=== PATIENT | male | born 1985 | race Caucasian/White ===

== ENCOUNTER 2016-06-11 09:39 | Outpatient (CLI) ==
[2015-11-18 18:48] VITALS: BMI 25.9
== END 2016-06-11 09:40 ==
LOC: AMBL 09:39
PROVIDERS: ATTEND Internal Medicine
DX: R56.9 Unspecified convulsions (principal); R51 Headache; M54.5 Low back pain; S09.90XA Unspecified injury of head, initial encounter; W19.XXXA Unspecified fall, initial encounter

== ENCOUNTER 2016-10-22 17:07 | Outpatient (CLI) ==
[2015-11-18 18:48] VITALS: BMI 25.9
[2016-10-22 17:59] LABS: BASOPHILS % (AUTO) 0.3 % (0.0-3.0); EOSINOPHILS % (AUTO) 0.6 % (0.0-7.0); HEMATOCRIT 42.1 % (42.0-52.0); HEMOGLOBIN 14.5 g/dl (14.0-18.0); IMMATURE GRANULOCYTE % (AUTO) 0.2 % (0.0-5.0); LYMPHOCYTES # (AUTO) 2.6 K/uL (0.60-3.4); LYMPHOCYTES % (AUTO) 39.9 (10.0-50.0); MEAN CORPUSCULAR HEMOGLOBIN 31.1 pg (27.0-31.0); MEAN CORPUSCULAR HGB CONC 34.4 (31.8-35.4); MEAN CORPUSCULAR VOLUME 90.3 fl (80.0-94.0); MONOCYTES # (AUTO) 0.4 K/uL (0.4-2.0); MONOCYTES % (AUTO) 6.4 (0-10); NEUTROPHILS # (AUTO) 3.4 K/ul (2.0-6.9); NEUTROPHILS % (AUTO) 52.6; PLATELET COUNT 257 10^3/uL (140-440); RED BLOOD COUNT 4.66 10^6/ul (4.70-6.10); WHITE BLOOD COUNT 6.42 K/ul (4.2-10.2)
[2016-10-22 18:12] LABS: ALBUMIN 4.5 g/dL (3.4-5.0); ALBUMIN/GLOBULIN RATIO 1.55; ANION GAP 15.9; BILIRUBIN,TOTAL 0.66 mg/dL (0.00-1.20); BUN/CREATININE RATIO 15.73; CALCIUM 9.6 mg/dL (8.2-10.2); CREATININE 0.89 mg/dL (0.60-1.10); POTASSIUM 3.9 mmol/L (3.5-5.1); TOTAL PROTEIN 7.4 g/dL (6.4-8.2)
== END 2016-10-22 17:08 | disposition home or self-care (01) ==
LOC: LAB 17:07
PROVIDERS: ATTEND Nurse Practitioner Family
DX: R19.7 Diarrhea, unspecified (principal)
CPT/HCPCS: 36415; 80053; 82150; 83690; 85025

== ENCOUNTER 2016-10-29 08:52 | Outpatient (CLI) ==
[2015-11-18 18:48] VITALS: BMI 25.9
--- NOTE | 2016-10-29 09:37 | CT ---
EXAM: CT of the abdomen pelvis without contrast History: Diarrhea. Technique: Multiplanar CT images through the abdomen pelvis were obtained without the administratio n of IV contrast Findings: Lung bases are clear. No acute osseous abnormalities. No renal stones and no hydronephrosis. The appendix is normal. No discrete gallstones identified b y CT. No focal liver or splenic lesions. No peripancreatic inflammation. Adrenal glands are unrem arkable. No bowel obstruction. No free air. No ascites. 2 mm calcification seen within the bladd er. No perirectal inflammation. Prostate is not enlarged. Fluid seen in the stomach. Nondilated fluid filled loops of small bowel. Mild to moderate colonic stool. Impression: 1. No acute intra-abdominal or pelvic process. 2. 2 mm bladder calculus.
== END 2016-10-29 08:53 | disposition home or self-care (01) ==
LOC: RAD 08:52
PROVIDERS: ATTEND Nurse Practitioner Family
DX: R19.7 Diarrhea, unspecified (principal)

== ENCOUNTER 2017-01-28 13:08 | Outpatient (CLI) ==
[2015-11-18 18:48] VITALS: BMI 25.9
[2017-01-28 13:20] LABS: BASOPHILS % (AUTO) 0.3 % (0.0-3.0); EOSINOPHILS # (AUTO) 0.1 K/ul (0.0-0.7); EOSINOPHILS % (AUTO) 1.4 % (0.0-7.0); HEMATOCRIT 45.3 % (42.0-52.0); HEMOGLOBIN 15.5 g/dl (14.0-18.0); IMMATURE GRANULOCYTE % (AUTO) 0.8 % (0.0-5.0); LYMPHOCYTES # (AUTO) 2.5 K/uL (0.60-3.4); LYMPHOCYTES % (AUTO) 25.5 (10.0-50.0); MEAN CORPUSCULAR HEMOGLOBIN 30.8 pg (27.0-31.0); MEAN CORPUSCULAR HGB CONC 34.2 (31.8-35.4); MEAN CORPUSCULAR VOLUME 89.9 fl (80.0-94.0); MONOCYTES # (AUTO) 0.6 K/uL (0.4-2.0); MONOCYTES % (AUTO) 6.5 (0-10); NEUTROPHILS # (AUTO) 6.3 K/ul (2.0-6.9); NEUTROPHILS % (AUTO) 65.5; PLATELET COUNT 259 10^3/uL (140-440); RED BLOOD COUNT 5.04 10^6/ul (4.70-6.10); WHITE BLOOD COUNT 9.68 K/ul (4.2-10.2)
[2017-01-28 13:32] LABS: ALBUMIN 4.3 g/dL (3.4-5.0); ALBUMIN/GLOBULIN RATIO 1.26; ANION GAP 13.3; BILIRUBIN,TOTAL 0.61 mg/dL (0.00-1.20); BUN/CREATININE RATIO 12.5; CALCIUM 10.1 mg/dL (8.2-10.2); CREATININE 0.8 mg/dL (0.60-1.10); POTASSIUM 4.3 mmol/L (3.5-5.1); TOTAL PROTEIN 7.7 g/dL (6.4-8.2)
== END 2017-01-28 13:09 | disposition home or self-care (01) ==
LOC: LAB 13:08
PROVIDERS: ATTEND Nurse Practitioner Family
DX: R19.7 Diarrhea, unspecified (principal)
CPT/HCPCS: 36415; 80053; 82150; 83690; 85025

== ENCOUNTER 2017-07-01 17:09 | Emergency (ER) ==
[2017-07-01 17:11] VITALS: BP 136/63; TEMP 98.2; BMI 34.0
--- NOTE | 2017-07-01 19:07 | ED.PDOC ---
General ED Provider: Dr. CRAIG GOVEA Chief Complaint: Tooth Problem Stated Complaint: Tootache. Onset for several days with progressive worsening.States has had problems with his teeth for several years and denies drug usage. Scheduled to see dentist since he now has insurance. Pain in lt lateral maxillofacial region Time Seen by Physician: 19:05 Mode of Arrival: Walk-In Information Source: Patient Exam Limitations: No limitations Primary Care Provider: TOÑA MEEK Nursing and Triage Documentation Reviewed and Agree: Yes Reviewed sepsis parameters & appropriate labs ordered?: Yes System Inflammatory Response Syndrome: Not Applicable Sepsis Protocol: For patient's 13 years and over: Temp is 96.8 and below OR 101 and greater Pulse >90 BPM Resp >20/minute Acutely Altered Mental Status Are patient's symptoms suggestive of a new infection, such as: -Pneumonia -Skin, Soft Tissue -Endocarditis -UTI -Bone, Joint Infection -Implantable Device -Acute Abdominal Infection -Wound Infection -Meningitis -Blood Stream Catheter Infection -Unknown System Inflammatory Response Syndrome: Not Applicable EENT Complaint Exam - Dental/Oral Complaint/Exam Mechanism of Injury: Unknown Symptoms Are: Still present Timing: Constant Initial Severity: Severe Current Severity: Moderate Character: Reports: Aching, Throbbing Aggravating: Reports: Cold, Chewing Alleviating: Reports: None Associated Signs and Symptoms: Reports: Swelling, Foul odor, Foul taste in mouth Related History: Reports: Similar episode Cardiac Risk Factors: Reports: None Dental/Oral Surgical History: Reports: None (severe global dental carries) Tooth Findings: Present: Percussion tenderness, Gross decay, Gross caries, Abcess, Cellulitis Cervical Lymphadenopathy Present: Yes Facial Swelling Present: Yes Bleeding Present: No Oropharynx Findings: Absent: Clots, Active bleeding Septal Hematoma: No Foreign Body Present: No Dysphagia Present: No Drooling Present: No Asymmetrical Tonsillar Swelling Present: No Differential Diagnoses: Dental Abcess, Dental Caries, Gingivitis, Odontogenic Pain Review of Systems - Review Of Systems Constitutional: Reports: No symptoms Eyes: Reports: No symptoms Ears, Nose, Mouth, Throat: Reports: No symptoms, Mouth pain, Mouth swelling Respiratory: Reports: No symptoms Cardiac: Reports: No symptoms GI: Reports: No symptoms : Reports: No symptoms Musculoskeletal: Reports: No symptoms Skin: Reports: No symptoms Neurological: Reports: No symptoms Endocrine: Reports: No symptoms Hematologic/Lymphatic: Reports: No symptoms All Other Systems: Reviewed and Negative Past Medical History - Past Medical History Endocrine: Reports: None Cardiovascular: Reports: None Respiratory: Reports: None Hematological: Reports: None Gastrointestinal: Reports: None Genitourinary: Reports: None Neuro/Psych: Reports: None Musculoskeletal: Reports: None Cancer: Reports: None - Surgical History General Surgical History: Reports: None - Family History Family History: Reports: None - Social History Smoking Status: Current every day smoker, Heavy tobacco smoker Hx Substance Use: No Alcohol Screening: None Physical Exam - Physical Exam Appearance: Well-appearing, No pain distress, Well-nourished Ill-appearing: Mild Pain Distress: Moderate Eyes: CLEO, EOMI, Conjunctiva clear ENT: Ears normal, Nose normal, Oropharynx normal, Erythema (severe multiple dental carries, gross decay with facial tenderness lt maxillofacial region) Respiratory: Airway patent, Breath sounds clear, Breath sounds equal, Respirations nonlabored Cardiovascular: RRR, Pulses normal, No rub, No murmur GI/: Soft, Nontender, No masses, Bowel sounds normal, No Organomegaly Musculoskeletal: Normal strength, ROM intact, No edema, No calf tenderness Skin: Warm, Dry, Normal color Neurological: Sensation intact, Motor intact, Reflexes intact, Cranial nerves intact, Alert, Oriented Psychiatric: Affect appropriate, Mood appropriate Critical Care Note - Critical Care Note Total Time (mins): 0 Course - Course Vital Signs: Temp Pulse Resp BP Pulse Ox 07/01/17 17:09 98.2 F 83 20 136/63 96 Departure - Departure Time of Disposition: 19:25 Disposition: HOME SELF-CARE Discharge Problem: Abscess, dental Instructions: Dental Abscess (ED) Condition: Fair Pt referred to PMD for follow-up: Yes (DENTIST /PCP) IPMP verified?: No Additional Instructions: Treatment offered. 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
[2017-07-01] MEDS ORDERED: UNASYN 1.5 GM in SODIUM CHLORIDE 100 ML IV STA (19:15)
[2017-07-01] MEDS ORDERED: TORADOL IVP STA (19:15)
== END 2017-07-01 19:24 | disposition home or self-care (01) ==
LOC: ED 17:09
DX: K04.7 Periapical abscess without sinus (principal); K02.7 Dental root caries; F17.210 Nicotine dependence, cigarettes, uncomplicated
CPT/HCPCS: 99284

== ENCOUNTER 2017-11-07 16:53 | Outpatient (CLI) | END 2017-11-07 16:54 | disposition home or self-care (01) | LOC: LAB 16:53 | PROVIDERS: ATTEND Nurse Practitioner Family | DX: G40.909 Epilepsy, unspecified, not intractable, without status epilepticus (principal); Z51.81 Encounter for therapeutic drug level monitoring | CPT/HCPCS: 36415; 80053; 80061; 82542 ==

== ENCOUNTER 2018-06-19 18:27 | Emergency (ER) | payer OTHER ==
[2018-06-19 18:29] VITALS: BP 129/76; TEMP 97.5; BMI 28.0
--- NOTE | 2018-06-19 19:52 | CT ---
EXAM: CT scan abdomen pelvis without contrast HISTORY: Abdominal pain COMPARISON: CT scan pelvis 10/29/2016 FINDINGS: . It was axial images obtained from the lung bases to the symphysis pubis without contras t utilizing 5-mm collimation. Sagittal and coronal reconstructions were imaged and reviewed.. The v isualized lung bases are clear. Gallbladder is fluid filled without cholelithiasis. The liver, panc reas, spleen and adrenal glands have normal unenhanced CT appearance of the kidneys morphologically n ormal. The abdominal aorta is normal course caliber. There is a small fat-containing umbilical wilber ia. There is a normal appendix. Scattered subcentimeter mesenteric lymph nodes noted which may rela татьяна to mesenteric adenitis the prostate gland normal in size. The bladder is small volumed limiting evaluation.. Likely stable 2 mm bladder calculus. There is no free fluid or inflammatory changes.. Bone windows reveals no evidence of lytic or blastic lesions. IMPRESSION: No acute intra-abdominal findings
--- NOTE | 2018-06-19 19:57 | ED.PDOC ---
General ED Provider: Dr. CRAIG OSPINA-ER Chief Complaint: Abdominal Pain Stated Complaint: becka had vomiting and diarrhea and cramps for 24hrs---keep fluids down now Time Seen by Physician: 18:30 Mode of Arrival: Walk-In Information Source: Patient Exam Limitations: No limitations Nursing and Triage Documentation Reviewed and Agree: Yes Does patient meet sepsis criteria?: No System Inflammatory Response Syndrome: Not Applicable Sepsis Protocol: For patient's 13 years and over: Temp is 96.8 and below OR 101 and greater Pulse >90 BPM Resp >20/minute Acutely Altered Mental Status Are patient's symptoms suggestive of a new infection, such as: -Pneumonia -Skin, Soft Tissue -Endocarditis -UTI -Bone, Joint Infection -Implantable Device -Acute Abdominal Infection -Wound Infection -Meningitis -Blood Stream Catheter Infection -Unknown GI Complaint Exam - Abdominal Pain Complaint/Exam Onset: Gradual Duration: 2 days Symptoms Are: Still present Timing: Intermittent Initial Severity: Mild Current Severity: Mild Location of Pain: Diffuse Radiates To: Reports: Back Character: Reports: Dull, Aching, Cramping Alleviating: Reports: Spontaneous resolution Associated Signs and Symptoms: Reports: Nausea, Diarrhea Abdominal Findings: Present: None Differential Diagnoses: Gastroenteritis Quality Indicator For Non-Traumatic Chest Pain/Syncope: EKG Performed Review of Systems - Review Of Systems Constitutional: Reports: No symptoms Eyes: Reports: No symptoms Ears, Nose, Mouth, Throat: Reports: No symptoms Respiratory: Reports: No symptoms Cardiac: Reports: No symptoms GI: Reports: Abdominal pain, Diarrhea, Nausea : Reports: No symptoms Musculoskeletal: Reports: No symptoms Skin: Reports: No symptoms Neurological: Reports: No symptoms Endocrine: Reports: No symptoms Hematologic/Lymphatic: Reports: No symptoms All Other Systems: Reviewed and Negative Past Medical History - Past Medical History Previously Healthy: No Endocrine: Reports: None Cardiovascular: Reports: None Respiratory: Reports: None Hematological: Reports: None Gastrointestinal: Reports: None Genitourinary: Reports: None Neuro/Psych: Reports: None Musculoskeletal: Reports: None Cancer: Reports: None - Surgical History General Surgical History: Reports: None - Family History Family History: Reports: None - Social History Smoking Status: Current every day smoker, Heavy tobacco smoker Hx Substance Use: No Alcohol Screening: None Physical Exam - Physical Exam Appearance: Well-appearing Eyes: CLEO, EOMI, Conjunctiva clear ENT: Ears normal, Nose normal, Oropharynx normal Neck: Supple Respiratory: Airway patent, Breath sounds clear, Breath sounds equal, Respirations nonlabored Cardiovascular: RRR, Pulses normal, No rub, No murmur GI/: Soft, Nontender, No masses, Bowel sounds normal, No Organomegaly Musculoskeletal: Normal strength, ROM intact, No edema, No calf tenderness Skin: Warm, Dry, Normal color Neurological: Sensation intact, Motor intact, Reflexes intact, Cranial nerves intact, Alert, Oriented Psychiatric: Affect appropriate, Mood appropriate Interpretation - Radiology Interpretation Radiology Interpretation By: Radiologist Exam Interpreted: CT Scan - EKG Interpretation Time of EKG #1: 19:57 Rate: Normal Rhythm: Sinus Ectopy: None [place]: NL ST Segment: Normal Interpretation: nsr Critical Care Note - Critical Care Note Total Time (mins): 0 Course - Course Hematology/Chemistry: 06/19/18 19:03 06/19/18 19:03 Orders, Labs, Meds: Lab Review 06/19/18 06/19/18 06/19/18 19:03 19:03 19:03 WBC 7.47 RBC 4.88 Hgb 14.9 Hct 43.1 MCV 88.3 MCH 30.5 MCHC 34.6 RDW Coeff of Ruth 12.4 Plt Count 204 Immature Gran % (Auto) 0.3 Neut % (Auto) 73.8 Lymph % (Auto) 18.9 [place] % (Auto) 6.6 Eos % (Auto) 0.1 Baso % (Auto) 0.3 Immature Gran # (Auto) 0.0 Neut # (Auto) 5.5 Lymph # (Auto) 1.4 [place] # (Auto) 0.5 Eos # (Auto) 0.0 Baso # (Auto) 0.0 ESR 7 Sodium 137.2 Potassium 3.77 Chloride 101.1 Carbon Dioxide 24.8 Anion Gap 15.07 BUN 19.1 Creatinine 0.86 Estimated GFR (MDRD) 103.00 BUN/Creatinine Ratio 22.20 Glucose 107.7 H Calcium 9.26 Total Bilirubin 0.58 AST 23.3 ALT 20.0 Alkaline Phosphatase 59.3 Total Protein 7.06 Albumin 4.46 Globulin 2.60 Albumin/Globulin Ratio 1.71 Amylase 45.4 Lipase 56.9 Urine Color Urine Clarity Urine pH Ur Specific [place] Urine Protein Urine Glucose (UA) Urine Ketones Urine Blood Urine Nitrite Urine Bilirubin Urine Urobilinogen Ur Leukocyte Esterase Urine Microscopic RBC Urine Microscopic WBC Ur Squamous Epith Cells Urine Mucus Influ A Molecular Assay Influ B Molecular Assay 06/19/18 06/19/18 19:11 19:36 WBC RBC Hgb Hct MCV MCH MCHC RDW Coeff of Ruth Plt Count Immature Gran % (Auto) Neut % (Auto) Lymph % (Auto) [place] % (Auto) Eos % (Auto) Baso % (Auto) Immature Gran # (Auto) Neut # (Auto) Lymph # (Auto) [place] # (Auto) Eos # (Auto) Baso # (Auto) ESR Sodium Potassium Chloride Carbon Dioxide Anion Gap BUN Creatinine Estimated GFR (MDRD) BUN/Creatinine Ratio Glucose Calcium Total Bilirubin AST ALT Alkaline Phosphatase Total Protein Albumin Globulin Albumin/Globulin Ratio Amylase Lipase Urine Color Dark Urine Clarity Clear Urine pH 5.5 Ur Specific [place] 1.025 Urine Protein Trace Urine Glucose (UA) Negative Urine Ketones Negative Urine Blood Negative Urine Nitrite Negative Urine Bilirubin Negative Urine Urobilinogen 1.0 Ur Leukocyte Esterase Negative Urine Microscopic RBC 2-5 Urine Microscopic WBC 0-2 Ur Squamous Epith Cells 2-5 Urine Mucus 1+ Influ A Molecular Assay Negative by naat Influ B Molecular Assay Negative by naat Orders Category Date Time Status EKG-(ED ONLY) Stat CARDIO 06/19/18 18:51 Completed AMYLASE Stat LAB 06/19/18 19:03 Completed CBC W/ AUTO DIFF Stat LAB 06/19/18 19:03 Completed COMPREHENSIVE METABOLIC PANEL Stat LAB 06/19/18 19:03 Completed ESR Stat LAB 06/19/18 19:03 Completed FLU A/B MOLECULAR Stat LAB 06/19/18 19:11 Completed LIPASE Stat LAB 06/19/18 19:03 Completed MOLECULAR GROUP A STREP Stat LAB 06/19/18 19:11 Completed URINALYSIS C & S IF INDICATED Stat LAB 06/19/18 19:[address] ABDOMEN/PELVIS WO CONTRAST Stat RADS 06/19/18 18:51 Completed Vital Signs: Temp Pulse Resp BP Pulse Ox 06/19/18 18:27 97.5 F L 88 20 129/76 95 Departure - Departure Time of Disposition: 19:57 Disposition: HOME SELF-CARE Discharge Problem: Gastroenteritis Instructions: Gastroenteritis (ED) Condition: Good Pt referred to PMD for follow-up: Yes IPMP verified?: No Additional Instructions: avoid dairy products for 3 days---zofran 4mg q 6hrs prn nausea #5---bentyl 10mg qid prn cramps#30---f/u with pcp if not better in 72hers Allergies/Adverse Reactions: Allergies No Known Allergies Allergy (Verified 06/19/18 18:29) Disposition Discussed With: Patient, Family
== END 2018-06-19 20:06 | disposition home or self-care (01) ==
LOC: ED 18:27
DX: K52.9 Noninfective gastroenteritis and colitis, unspecified (principal); F17.210 Nicotine dependence, cigarettes, uncomplicated
CPT/HCPCS: 36415; 80053; 81001; 82150; 83690; 85025; 85651; 87502; 87651; 93005; 93010; 99283

== ENCOUNTER 2018-11-15 11:42 | Emergency (ER) ==
[2018-11-15 11:46] VITALS: BP 131/75; TEMP 98.1; BMI 27.1
--- NOTE | 2018-11-15 12:36 | CT ---
EXAM: CT abdomen and pelvis without contrast. HISTORY: Right inguinal pain after pulling on a wire TECHNIQUE: Multi-slice transaxial helical CT. Coronal and sagittal reformatons were performed. COMPARISON: 06/19/2018. FINDINGS: The heart is normal in size. The lung bases are clear. Evaluation of the solid organs is limited without IV contrast. The spleen and gallbladder are normal in size. The pancreas and the bilateral adrenal glands appear grossly unremarkable. No hydronephro sis or renal calculus is seen. No definite intrahepatic biliary ductal dilation is seen. The bowel is not dilated. Appendix appears normal in size. Urinary bladder is not well distended. No pelvic free fluid is seen. The bilateral inguinal regions appear unremarkable without evidence of focal fluid collection, hernia, or adenopathy. Osseous structures appear grossly unremarkable. IMPRESSION: 1. No acute abdominal findings. 2. No hydronephrosis or renal calculus. 3. Unremarkable inguinal regions.
--- NOTE | 2018-11-15 12:45 | ED.PDOC ---
General ED Provider: Dr. CRAIG OSPINA-ER Chief Complaint: Abdominal Pain Stated Complaint: i pulled on a wire and pulled something in my groin yesterday- -it feels better today and i need a work excuse Time Seen by Physician: 11:50 Information Source: Patient Exam Limitations: No limitations Primary Care Provider: SELMA VALDEZ Nursing and Triage Documentation Reviewed and Agree: Yes Does patient meet sepsis criteria?: No System Inflammatory Response Syndrome: Not Applicable Sepsis Protocol: For patient's 13 years and over: Temp is 96.8 and below OR 101 and greater Pulse >90 BPM Resp >20/minute Acutely Altered Mental Status Are patient's symptoms suggestive of a new infection, such as: -Pneumonia -Skin, Soft Tissue -Endocarditis -UTI -Bone, Joint Infection -Implantable Device -Acute Abdominal Infection -Wound Infection -Meningitis -Blood Stream Catheter Infection -Unknown GI Complaint Exam - Abdominal Pain Complaint/Exam Onset: Sudden Duration: 24 hrs Symptoms Are: Still present Timing: Constant Initial Severity: Mild Current Severity: Mild Location of Pain: Discrete, RLQ Radiates To: Reports: Inguinal Character: Reports: Dull, Aching Aggravating: Reports: Position Alleviating: Reports: Spontaneous resolution Associated Signs and Symptoms: Denies: Diaphoresis, Fever, Cough, Chest pain, Dizziness, Back pain, Constipation, Blood in stool, Dysuria, Urinary frequency, Decreased urine output, Decreased appetite, Discharge, Nausea, Vomiting, Diarrhea, Decreased activity Abdominal Findings: Present: None Differential Diagnoses: Other Review of Systems - Review Of Systems Constitutional: Reports: No symptoms Eyes: Reports: No symptoms Ears, Nose, Mouth, Throat: Reports: No symptoms Respiratory: Reports: No symptoms Cardiac: Reports: No symptoms GI: Reports: Abdominal pain (tender right inguinal area --no hernia noted) : Reports: No symptoms Musculoskeletal: Reports: No symptoms Skin: Reports: No symptoms Neurological: Reports: No symptoms Endocrine: Reports: No symptoms Hematologic/Lymphatic: Reports: No symptoms All Other Systems: Reviewed and Negative Past Medical History - Past Medical History Previously Healthy: No Endocrine: Reports: None Cardiovascular: Reports: None Respiratory: Reports: None Hematological: Reports: None Gastrointestinal: Reports: None Genitourinary: Reports: None Neuro/Psych: Reports: None Musculoskeletal: Reports: None Cancer: Reports: None - Surgical History General Surgical History: Reports: None - Family History Family History: Reports: None - Social History Smoking Status: Current every day smoker, Heavy tobacco smoker Hx Substance Use: No Alcohol Screening: None Physical Exam - Physical Exam Appearance: Well-appearing, No pain distress, Well-nourished Pain Distress: Mild Eyes: CLEO, EOMI, Conjunctiva clear ENT: Ears normal, Nose normal, Oropharynx normal Neck: Supple Respiratory: Airway patent, Breath sounds clear, Breath sounds equal, Respirations nonlabored Cardiovascular: RRR, Pulses normal, No rub, No murmur GI/: Soft, No masses, Bowel sounds normal, Tender Musculoskeletal: Normal strength, ROM intact, No edema, No calf tenderness Skin: Warm, Dry, Normal color Neurological: Sensation intact, Motor intact, Reflexes intact, Cranial nerves intact, Alert, Oriented Psychiatric: Affect appropriate, Mood appropriate Interpretation - Radiology Interpretation Radiology Interpretation By: Radiologist Radiology Results: Negative Exam Interpreted: CT Scan Critical Care Note - Critical Care Note Total Time (mins): 0 Course - Course Hematology/Chemistry: 11/15/18 12:05 11/15/18 12:05 Orders, Labs, Meds: Lab Review 11/15/18 11/15/18 11/15/18 11:55 12:05 12:05 WBC 6.40 RBC 4.58 L Hgb 14.1 Hct 41.5 L MCV 90.6 MCH 30.8 MCHC 34.0 RDW Coeff of Ruth 12.8 Plt Count 263 Immature Gran % (Auto) 0.2 Neut % (Auto) 52.2 Lymph % (Auto) 38.4 [place] % (Auto) 7.0 Eos % (Auto) 1.6 Baso % (Auto) 0.6 Immature Gran # (Auto) 0.0 Neut # (Auto) 3.3 Lymph # (Auto) 2.5 [place] # (Auto) 0.5 Eos # (Auto) 0.1 Baso # (Auto) 0.0 ESR 5 Sodium 140.7 Potassium 4.44 Chloride 104.5 Carbon Dioxide 26.5 Anion Gap 14.14 BUN 19.4 Creatinine 0.80 Estimated GFR (MDRD) 112.00 BUN/Creatinine Ratio 24.25 Glucose 98.4 Calcium 9.77 Total Bilirubin 0.54 AST 61.4 H ALT 21.0 Alkaline Phosphatase 73.5 Total Protein 7.74 Albumin 4.87 Globulin 2.87 Albumin/Globulin Ratio 1.69 Amylase 86.8 Lipase 70.4 Urine Color Yellow Urine Clarity Clear Urine pH 6.0 Ur Specific [place] 1.025 Urine Protein Negative Urine Glucose (UA) Negative Urine Ketones Negative Urine Blood Negative Urine Nitrite Negative Urine Bilirubin Negative Urine Urobilinogen 0.2 Ur Leukocyte Esterase Negative Orders Category Date Time Status AMYLASE Stat LAB 11/15/18 12:05 Completed CBC W/ AUTO DIFF Stat LAB 11/15/18 12:05 Completed COMPREHENSIVE METABOLIC PANEL Stat LAB 11/15/18 12:05 Completed ESR Stat LAB 11/15/18 12:05 Completed LIPASE Stat LAB 11/15/18 12:05 Completed URINALYSIS C & S IF INDICATED Stat LAB 11/15/18 11:[address] ABDOMEN/PELVIS WO CONTRAST Stat RADS 11/15/18 11:52 Completed Vital Signs: Temp Pulse Resp BP Pulse Ox 11/15/18 11:43 98.1 F 81 18 131/75 96 Departure - Departure Time of Disposition: 12:48 Disposition: HOME SELF-CARE Discharge Problem: Inguinal strain Qualifiers: Encounter type: initial encounter Laterality: right Qualified Code(s): S76.211A - Strain of adductor muscle, fascia and tendon of right thigh, initial encounter Instructions: Groin Pain (ED) Condition: Good Pt referred to PMD for follow-up: Yes IPMP verified?: No Additional Instructions: tylenol or motrin for pain--f/u with pcp Allergies/Adverse Reactions: Allergies No Known Allergies Allergy (Verified 11/15/18 11:45) Home Medications: Ambulatory Orders Levetiracetam [Keppra] 500 mg PO BID 11/15/18 Disposition Discussed With: Patient
== END 2018-11-15 12:53 | disposition home or self-care (01) ==
LOC: ED 11:42
DX: S76.211A Strain of adductor muscle, fascia and tendon of right thigh, initial encounter (principal); R10.31 Right lower quadrant pain; X50.1XXA Overexertion from prolonged static or awkward postures, initial encounter; F17.210 Nicotine dependence, cigarettes, uncomplicated
CPT/HCPCS: 36415; 80053; 81001; 82150; 83690; 85025; 85651; 99283